=== PATIENT | female | born 1995 | race Caucasian/White ===

== ENCOUNTER 2024-05-16 15:57 | Inpatient (IN) | payer OTHER, SELFPAY ==
[2024-05-16] VITALS (18 sets, daily range): BP systolic 77–218; BP diastolic 52–202; PULSE 64–136; TEMP 36.4–36.6; BMI 31.1
--- NOTE | 2024-05-16 15:57 | LDADM ---
This patient, Chase Wayne, was admitted to Labor/Delivery/Recovery 108 on 05/16/24 at 15:57. Plans for labor, pain management and were discussed with patient. Patient/family oriented to hospital policies and general routines including ID bracelet, bed and alarms, visiting hours, pain management, procedures, bathroom and other care routines, personal items, smoking policy, room service/diet and guest tray routines, infant security routines, and visiting hours. Patient/Family are encouraged to report perceived risks to care and to ask questions if they do not understand what they are told or what they should do. See OBIX for further documentation.
[2024-05-16 16:42] LABS: Basophils Percent Auto 0.3 % (0.2-1.2); Eosinophils Absolute Auto 0.1 K/mm3 (0-0.3); Eosinophils Percent Auto 0.7 % (0-4.4); Hematocrit 37.6 % (37.0-47.0); Hemoglobin 12.1 g/dL (12.0-15.0); Immature Granulocyte Absolute 0.16 K/mm3 (0.00-0.031); Immature Granulocyte Percent A 1.2 % (0-0.5); Lymphocytes Absolute Auto 1.46 K/mm3 (0.9-3.2); Mean Corpuscular HGB Conc 32.2 g/dl (32-36); Mean Corpuscular Hemoglobin 26.3 pg (26-34); Mean Corpuscular Volume 81.7 fl (80-100); Mean Platelet Volume 10.1 fl (7.4-10.4); Monocytes Absolute Auto 1.1 K/mm3 (0.1-0.6); Monocytes Percent Auto 8.4 % (2.6-8.5); Neutrophils Absolute Auto 10.4 K/mm3 (1.3-6.7); Neutrophils Percent Auto 78.4 % (45.5-73.1); Platelet Count Result 224 k/mm3 (150-375); Red Cell Distribution Width 13.7 % (11.5-14.5); White Blood Count 13.3 K/mm3 (4.5-10.0)
[2024-05-16] MEDS: DINOPROSTONE 10 MG VAG INSERT VAGINAL (17:12)
[2024-05-16 17:29] LABS: HIV 1/2 Ab P24 Ag Result Negative (Negative)
[2024-05-16 18:08] LABS: Rapid Plasma Reagin Non-Reactive (NonReactive)
[2024-05-17] VITALS (114 sets, daily range): BP systolic 101–142; BP diastolic 59–94; PULSE 70–288; TEMP 36.2–36.9; O2SAT 94–100
--- NOTE | 2024-05-17 05:24 | WPDANESEPP ---
Anes - Eval Pre Procedure Procedure: Labor Epidural Date/Time: 05/17/24 05:24 Surgeon: Singh Preop Diagnosis: Labor Pain Pre Op Diagnosis: Induction of Labor Patient Data Age: 28 Gender: F Height: 1.65 m Weight: 85 kg Last Vital Signs Temp 36.6 C 05/17/24 03:00 Pulse 85 05/17/24 03:08 BP 103/63 05/17/24 03:08 Allergies Allergy/AdvReac Type Severity Reaction Status Date / Time human papillomavirus Allergy Intermediate Blurry Verified 05/15/24 08:41 vaccine, bival Vision Home Medications Medication Instructions Recorded Confirmed Type vits no.126-ferrous fum 1 tablet PO DAILY 10/03/23 05/08/24 History 28 mg iron-folic acid 800 mcg tablet (Classic ) Laboratory Tests 05/16/24 16:13 WBC 13.3 H K/mm3 (4.5-10.0) RBC 4.60 M/mm3 (4.2-5.4) Hgb 12.1 g/dL (12.0-15.0) Hct 37.6 % (37.0-47.0) MCV 81.7 fl (80-100) MCH 26.3 pg (26-34) MCHC 32.2 g/dl (32-36) RDW 13.7 % (11.5-14.5) Plt Count 224 k/mm3 (150-375) MPV 10.1 fl (7.4-10.4) Immature Gran % (Auto) 1.2 H % (0-0.5) Neut % (Auto) 78.4 H % (45.5-73.1) Lymph % (Auto) 11.0 L % (18.3-44.2) [place] % (Auto) 8.4 % (2.6-8.5) Eos % (Auto) 0.7 % (0-4.4) Baso % (Auto) 0.3 % (0.2-1.2) Lymph # (Auto) 1.46 K/mm3 (0.9-3.2) [place] # (Auto) 1.1 H K/mm3 (0.1-0.6) Eos # (Auto) 0.1 K/mm3 (0-0.3) Baso # (Auto) 0.0 K/mm3 (0.0-0.1) Abs Immat Gran (auto) 0.16 H K/mm3 (0.00-0.031) Absolute Neuts (auto) 10.4 H K/mm3 (1.3-6.7) Absolute Nucleated RBC 0.000 K/mm3 (0.0-0.012) Nucleated RBC % 0.0 % (0.0-0.2) RPR Non-reactive (NonReactive) HIV 1&2 Ab/P24 Ag 4thGn Negative (Negative) Blood Type O Positive Antibody Screen Negative : gestational age (. JAMEEL 05/20/24) Patient hx anesthesia problems: none Family hx anesthesia problems: none Results Review: All pre-operative results and documents have been reviewed as part of the pre-operative evaluation. [facility] Past Medical History Medical History Suppression of menses Surgical History Surgical History H/O wisdom tooth extraction Family History Family History Grandparent Hypertension Father Family history of kidney stones Legal Guardian No problems noted. Mother Heart disease Social History Social History Years smoked: 3 Smoking status: Former smoker Second hand tobacco smoke exposure: No Smoking end date: 09/19/19 Alcohol intake: former Alcohol use details: social Substance use: never Substance use type: does not use Do You Feel Safe in your Home?: Yes Lack of Transportation: No Lack of Food: Never True Current Housing: I Have Housing Concerned About Future Housing: No Difficulty Paying Gas/Electric Bills: No Difficulty Paying for Meds: No Currently Unemployed: No Education: Master's Degree or Higher Difficulty w/ Childcare or Family Care: No Living arrangements: with family Additional living arrangements comments: Occupation/Education: student 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
[2024-05-17] MEDS: LACTATED RINGERS 1,000 ML 125 ML IV CONT ×2 (06:47→22:01)
[2024-05-17] MEDS: miSOPROStol 25 MCG TABLET VAGINAL ×2 (07:07→11:43)
--- NOTE | 2024-05-17 11:51 | PM.IMHP ---
H&P: HPI History of Present Illness Date/Time: 05/17/24 11:51 Chief Complaint: Intrauterine at term Narrative: 28 yo at 39w4d who presents for elective IOL. has been uncomplicated. Review of Systems Cardiovascular: Cardiovascular: Denies chest pain, Denies leg edema, Denies palpitations, Denies dyspnea and Denies dyspnea on exertion Respiratory: Respiratory: Denies cough, Denies dyspnea and Denies dyspnea on exertion Gastrointestinal: Gastrointestinal: Denies abdominal pain, Denies constipation, Denies diarrhea, Denies nausea and Denies vomiting Genitourinary: Genitourinary: Denies hematuria, Denies urinary frequency, Denies dysuria, Denies pelvic pain, Denies urinary incontinence and Denies vaginal discharge Neurologic: Reports system reviewed and no additional complaints, except as documented Psychiatric: Psychiatric: Reports no additional psychiatric complaints Endocrine: Endocrine: Denies palpitations PMFSH Past Medical History Medical History Suppression of menses Surgical History Surgical History H/O wisdom tooth extraction Family History Family History Grandparent Hypertension Father Family history of kidney stones Legal Guardian No problems noted. Mother Heart disease Social History Social History Years smoked: 3 Smoking status: Former smoker Second hand tobacco smoke exposure: No Smoking end date: 09/19/19 Alcohol intake: former Alcohol use details: social Substance use: never Substance use type: does not use Do You Feel Safe in your Home?: Yes Lack of Transportation: No Lack of Food: Never True Current Housing: I Have Housing Concerned About Future Housing: No Difficulty Paying Gas/Electric Bills: No Difficulty Paying for Meds: No Currently Unemployed: No Education: Master's Degree or Higher Difficulty w/ Childcare or Family Care: No Living arrangements: with family Additional living arrangements comments: Occupation/Education: 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 Gender identity (if verbalized by the patient): Female Sexual Orientation (if Verbalized by the Patient): Straight or Heterosexual Spiritual care concerns: No Meds Home Medications and Allergies Home Medications Medication Instructions Recorded Confirmed Type vits no.126-ferrous fum 1 tablet PO DAILY 10/03/23 05/08/24 History 28 mg iron-folic acid 800 mcg tablet (Classic ) Allergies Allergy/AdvReac Type Severity Reaction Status Date / Time human papillomavirus Allergy Intermediate Blurry Verified 05/15/24 08:41 vaccine, bival Vision Vital Signs Vital Signs - 24 hr 05/16/24 16:50 05/16/24 17:00 05/16/24 17:30 Temperature Pulse Rate 95 101 H 97 Blood Pressure 138/78 131/92 H 115/74 Pulse Oximetry 05/16/24 17:45 05/16/24 18:00 05/16/24 18:15 Temperature Pulse Rate 95 98 99 Blood Pressure 99/59 L 113/65 107/64 Pulse Oximetry 05/16/24 18:30 05/16/24 18:45 05/16/24 19:00 Temperature 97.6 F Pulse Rate 88 95 94 Blood Pressure 113/76 126/70 121/74 Pulse Oximetry 05/16/24 19:15 05/16/24 19:34 05/16/24 19:36 Temperature Pulse Rate 92 136 H 64 Blood Pressure 77/54 L 218/202 H 132/80 Pulse Oximetry 05/16/24 19:45 05/16/24 20:00 05/16/24 20:15 Temperature Pulse Rate 91 99 99 Blood Pressure 113/71 123/76 126/74 Pulse Oximetry 05/16/24 20:30 05/16/24 20:45 05/17/24 01:31 Temperature Pulse Rate 104 H 102 H 96 Blood Pressure 108/52 L 115/55 L 112/78 Pulse Oximetry 05/17/24 03:08 05/16/24 21:30 05/17/24 01:30 Temperature 97.9 F 97.8 F Pulse Rate 85 Blood Pressure 103/63
--- NOTE | 2024-05-17 11:55 | PM.OBPNLAB ---
Pain Control Date/time seen: 05/17/24 11:55 Pain control: tolerating well Pelvic Exam Dilation (cm): 1 Effacement (%): 50 station: -3 Amniotic membrane status: Intact Contractions Monitor mode: External Status status: Category l Assessment and Plan Assessment: induction ongoing Comments: cervix unchanged after cervidil and 1 dose of 25 mcg vaginal misoprostol. Discussed plan of care with patient at bedside. will proceed with an additional dose of vaginal misoprostol. will re-assess after 4 hours
[2024-05-17] MEDS: miSOPROStol 25 MCG TABLET 50 MCG PO (15:54)
[2024-05-17] MEDS: ONDANSETRON INJ 4 MG/2 ML VIAL IV PUSH (20:40)
[2024-05-17] MEDS: LACTATED RINGERS 500 ML 999 ML IV CONT (20:40)
--- NOTE | 2024-05-17 21:28 | PM.OBPNLAB ---
Pain Control Date/time seen: 05/17/24 21:28 Pelvic Exam Dilation (cm): 1 Effacement (%): 50 station: -3 Amniotic membrane status: Intact Contractions Monitor mode: External Status status: Category l Assessment and Plan Assessment: induction ongoing Comments: Cook cervical catheter placed with 40 mL in each balloon. Pt has an epidural placed and is comfortable. will continue with IOL
[2024-05-17] MEDS: OXYTOCIN 30 UNITS/NS 500 ML 30 UNITS/500 ML BAG IV CONT (22:01)
[2024-05-18] VITALS (98 sets, daily range): BP systolic 98–136; BP diastolic 53–98; PULSE 60–183; RESP 16–18; TEMP 36.3–37.9; O2SAT 95–100
[2024-05-18] MEDS: ONDANSETRON INJ 4 MG/2 ML VIAL IV PUSH (04:15)
--- NOTE | 2024-05-18 05:42 | PM.OBPRVD ---
OB - Vaginal Delivery Note Procedure Delivery date: 05/18/24 Induction method: Per Cervidil Protocol Delivery augmentation: Pitocin Delivery monitor: External FHT and External Uterine Route of delivery: Episiotomy description: None Laceration Description: Labial and Superficial Delivery repair: vicryl Specimen: No Quantitative Blood Loss (ml): 150 Anesthesia type: Epidural Disposition: PACU Complications: No immediate complications Narrative: Patient pushed for a spontaneous vaginal delivery. The fetus was delivered atraumatically and placed on the maternal abdomen. The cord was clamped and cut after 1 minute of life. The cord was double clamped and cut and a segment of cord was collected for cord gases. Cord blood was collected for blood type and Coomb's testing. The placenta delivered spontaneously and was noted to be intact. The perineum was inspected and noted to be intact. There were bilateral superficial labial lacerations. The lacerations were repaired with 3-0 vicryl in a running fashion. The uterus was firm and good hemostasis was noted. [place] Baby Date of : 05/18/24 Time of : 05:25 Gestational Age by Date: 39 Infant gender: Female presentation: vertex position: Right Occiput Anterior Placenta delivery description: Spontaneous Cord Vessel Description: 3 Vessels score one minute: 8 score five minutes: 9
[2024-05-18] MEDS: OXYTOCIN 30 UNITS/NS 500 ML 30 UNITS/500 ML BAG 125 UNITS IV CONT (06:24)
[2024-05-18] MEDS: BENZOCAINE 20% AER SPR (*SP) 56 GM CAN 1 SPRAY TOPICAL (06:41)
[2024-05-18] MEDS: WITCH HAZEL 40 PADS 1 PAD TOPICAL (06:41)
[2024-05-18] MEDS: ACETAMINOPHEN 325 MG TABLET 650 MG PO ×3 (06:42→19:38)
[2024-05-18] MEDS: LORATADINE 10 MG TABLET PO (06:42)
[2024-05-18] MEDS: IBUPROFEN 600 MG TABLET PO ×3 (06:42→19:38)
--- NOTE | 2024-05-18 08:07 | OBPPTRN ---
Patient transferred to post room # 282 via ambulatory. Support person present. Oriented to unit, room, information board, rooming in, admission packet and security measures. Patient verbalizes understanding.
[2024-05-18] MEDS: MULTIVIT/MIN/PREN/FOL AC/IRON TABLET 1 TAB PO (10:27)
[2024-05-18] MEDS: DOCUSATE SODIUM 100 MG CAPSULE PO ×2 (10:27→17:28)
--- NOTE | 2024-05-18 11:35 | PM.OBDSVD ---
DS: Admitting Diagnosis Discharge Date 05/19/24 Admitting Diagnosis intrauterine at term DS: Discharge Diagnosis Discharge Diagnosis (1) Normal vaginal delivery: Code(s): O80 - Encounter for full-term uncomplicated delivery Status: Acute OB - DS: Summary OB Procedures : None OB Procedures Intrapartum: Spontaneous Vag Delivery OB Procedures: : None Peripartum Data Laceration Description: Labial and Superficial Episiotomy description: None Status at Discharge Functional status at discharge: independent ambulation Overall status at discharge: patient is back to baseline Time Spent with Patient Time attestation: Total time spent providing and/or coordinating discharge services: Time spent: Less than 30 minutes Exam Const: General: comfortable and no acute distress Resp: Effort & Inspection: normal respiratory effort Auscultation: clear to auscultation bilaterally Cardio: Rate: regular rate GI: GI Palp: Yes Soft to palpation Auscultation: normal bowel sounds Other: Fundus firm below umbilicus Psych: Appearance: grossly normal Mental Status: mental status grossly normal Affect: normal affect Discharge Plan Discharge Discharging Clinician: Pankaj Reyes Patient Disposition: Home, Self-Care Activity: pelvic rest Diet: regular Discharge Instructions: Education: Mom and Baby Guide Given to: Mother Follow-Up: Call your delivering provider's office for an appointment to be seen in: call your OB's office to schedule your follow up appt Mom and baby should come [facility] for the follow-up appointment. Appointment Date/Time: May 21, 2024 at 12:30 pm What to expect at your follow-up visit: Blood Pressure Check Physical Assessment Call [phone] if you are unable to keep your appointment time. BREAST CARE: * Wear a snug supportive bra. * For engorgement discomfort: Breast Feeding: * Apply warm moist washcloths * Express milk as needed to relieve engorgement * Wear loose clothing Bottle Feeding: * May apply ice packs * For sore nipples: * Identify correct latch-on * Apply warm moist washcloths before and after nursing * Air dry nipples after nursing * May apply Lansinoh cream to nipples PERINEAL CARE: * Until bleeding stops, use your nati bottle after urinating * Change your pad frequently throughout the day * You may take sitz baths several times a day (fill your bathtub with warm water and soak for 20 minutes.) Do NOT bathe in the water * No tub baths until seen by your physician - You may shower ACTIVITY: * Rest as much as possible. * Do not exercise or lift anything heavier than your baby (such as laundry or other children.) * Avoid stairs or driving as much as possible. * Do not put anything into the vagina. No douching, tampons, or sexual activity until seen by physician. NOTIFY PHYSICIAN IF YOU HAVE ANY QUESTIONS OR IF ANY OF THE FOLLOWING SYMPTOMS OCCUR: * If your vaginal bleeding becomes foul smelling. * If your vaginal bleeding becomes more heavy than a period or if your bleeding changes from pink to bright red. However, you may pass an occasional walnut-sized clot once or twice for the first week . * If you experience a sharp, shooting pain in you calves. * If you discover a hard, reddened area on your breast or if you experience flu-like symptoms. DIET: * Eat regular, well-balanced meals. * Drink plenty of fluids daily. If , drink to thirst. Patient Instructions: Antibiotic Form, Vaginal Delivery (DC) Stand Alone Forms: General Discharge Information Follow-up/Referrals: Pankaj Reyes MD [Physician] - Discharge Medications: New acetaminophen 500 mg tablet 500 mg PO Q6H PRN (Reason: pain) Qty: 30 0RF ibuprofen 600 mg tablet 600 mg PO Q6H PRN (Reason: pain) Q
--- NOTE | 2024-05-18 13:20 | PC.NURSE ---
Introductions were made, then consulted with patient to assess needs related to . Mother states that is latching well and she feels confident with positioning and getting on breast for feedings. Feeding sheet reviewed with mother. Mother works well with her . No latch observed at this time. Mother voiced understanding of skin to skin, stimulating with massage touch, responsive feedings, hand expressed colostrum, talking to to encourage if it has been 2 -2.5 hours since the start of the last , to call if infant does not latch, or if there is discomfort with . Communication board updated. Parents voiced understanding of information and will call if there is a request for assistance. Reported to the Primary RN.
--- NOTE | 2024-05-18 17:00 | PC.NURSE ---
This RN called to room for assistance latching . was crying upon entering room and would not latch. Instructed mother on how to soothe infant before attempting to latch. Infant settled and latched to the right breast in football position. Mother instructed to call for additional assistance if needed.
[2024-05-19 05:55] LABS: Hematocrit 32.9 % (37.0-47.0); Hemoglobin 10.6 g/dL (12.0-15.0)
[2024-05-19] MEDS: IBUPROFEN 600 MG TABLET PO (07:17)
[2024-05-19] MEDS: MULTIVIT/MIN/PREN/FOL AC/IRON TABLET 1 TAB PO (07:17)
[2024-05-19] MEDS: LORATADINE 10 MG TABLET PO (07:18)
[2024-05-19] MEDS: DOCUSATE SODIUM 100 MG CAPSULE PO (07:18)
[2024-05-19 07:45] VITALS: BP 116/74; PULSE 80; RESP 18; TEMP 36.3; O2SAT 100
--- NOTE | 2024-05-19 08:00 | PC.NURSE ---
This RN called to bedside to assist with latching . Infant was screaming upon entering the room at the breast. Mother states that it has been a few hours since the last feed - explained to mother that is unlikely to latch if she is overly hungry. 1cc of pumped breast milk was given to help settle . Once the EBM was given, was calm and latched well to the right breast in cross cradle position. At this time, we discussed appropriate time frame to use milk that has been refrigerated. Handout was given with education about storing breastmilk. Mother understands education and no further questions at this time.
--- NOTE | 2024-05-19 08:27 | PM.OBPNVD ---
OB - PN: Subj Subjective Date/time seen: 05/19/24 08:27 Patient comments: pain well controlled, tolerating diet and other (Decreasing lochia.) baby status: doing well and nursing well [place] feeding status: exclusively breast feeding OB - PN: Obj Data Labs 05/19/24 05:37 Labs: Laboratory Results - last 24 hr 05/19/24 05:37 Hgb 10.6 L Hct 32.9 L OB - PN A/P Plan day: 1 Plan: routine care Comments: Patient doing well. She request discharge to home. Will allow discharge to home if baby is discharged. Time Spent With Patient Time: Total time spent is greater than 50% in coordination of care (as documented) at patient's floor/unit and/or counseling patient: Exam Psych: Affect: normal affect Other: Abd: fundus firm below umbilicus, nontender Perineum/labia- healing, minimal swelling. Ext: nontender
--- NOTE | 2024-05-19 10:29 | WPDANLDPN2 ---
Anes-Prog Note L&D Date/Time: 05/19/24 10:29 Comfortable throughout: labor and delivery Neuraxial method: epidural Epidural/Spinal procedure site: clean & non-tender Neuro status: Neuro function grossly intact. Cardiovascular status: normal Respiratory status: normal Airway patency: baseline Mental status: baseline Post-Op hydration status: normal Vital Signs: Last Vital Signs Temp 97.3 F L 05/19/24 07:45 Pulse 80 05/19/24 07:45 Resp 18 05/19/24 07:45 BP 116/74 05/19/24 07:45 Pulse Ox 100 05/19/24 07:45 O2 Del Method Room Air 05/19/24 07:25 Pain score (VAS): 0 Post-procedural complaints: none Patient feedback: Patient satisfied with anesthetic care.
--- NOTE | 2024-05-19 17:32 | PC.NURSE ---
1400.Patient viewed the discharge video Mother & Baby Care, The First Two Weeks . Patient was given the opportunity and encouraged to ask questions. Patient verbalized understanding of information shared and has been given the mother/baby guide for home reference.
[2024-05-21 12:58] VITALS: BP 132/87; PULSE 89; RESP 18; TEMP 36.8; O2SAT 99
== END 2024-05-19 17:48 | disposition home or self-care (01) | DRG 807 ==
LOC: ANHOB2 05-19 16:57 → ANHLDR 05-22 12:34
PROVIDERS: Admitting Provider Student in an Organized Health Care Education/Training Program; Visit Provider Obstetrics & Gynecology
DX: O70.0 First degree perineal laceration during delivery (principal); Z37.0 Single live birth; Z3A.39 39 weeks gestation of pregnancy
CPT/HCPCS: 36415; 85014; 85018; 85025; 86592; 86703; 86850; 86900; 86901; A9270; G0432; J2405; J2590; J2795; J7120

== ENCOUNTER 2025-08-12 21:07 | Inpatient (IN) | payer OTHER, SELFPAY ==
[2025-08-12] VITALS (39 sets, daily range): BP systolic 101–118; BP diastolic 51–72; PULSE 88–112; TEMP 36.5; O2SAT 93–100; BMI 32.0
--- OUTSIDE RECORDS SUMMARY | 2025-08-12 21:13 | XMS_ITS | Clinical Summary ---
Author Organization [facility] Address [address] [place] [address] Care Team Providers Care Mold Yard Crane Operator Name Role Phone Bre Dow MD Primary Care Provider [phone] Allergies No known active allergies Medications ondansetron (Zofran) 4 mg Tablet Take 1 Tablet (4 mg) by mouth every 8 hours as needed for Nausea/Emes is. 12 Tablet 09/16/2022 Active Active Problems Problem Noted Date Diagnosed Date Facial laceration 03/26/2013 Iritis 03/26/2013 UTI (urinary tract infection) 08/03/2012 Social History Tobacco Use Types Packs/Day Years Used Date Smoking Tobacco: Never Smokeless Tobacco: Never Alcohol Use Standard Drinks/Week Comments Not Asked 0 (1 standard drink = 0.6 oz pur e alcohol) Feeling Safe Answer Date Recorded Are you in a relationship wi th someone who hurts you emotionally and/or physically? 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 Gender Identity Not on file Sexual Orientation Not on file Occupation Industry Job Start Date Job End Date Not on file Not on file Not on file Not on file Last Filed Vital Signs Vital Sign Reading Time Taken Comments Blood Pressure 110/61 06/14/2023 3:21 AM CDT Pulse 89 06/14/2023 3:21 AM CDT Temperature 36.7 C (98.1 F) 06/14/2023 3:21 AM CDT Respiratory Rate 18 06/14/2023 3:21 AM CDT Oxygen Saturation 97% 06/14/2023 3:21 AM CDT Inhaled Oxygen Concentration - - Weight 59 kg (130 lb) 06/14/2023 3:21 AM CDT Height 165.1 cm (5' 5) 06/14/2023 3:21 AM CDT Body Mass Index 21.63 06/14/2023 3:21 AM CDT Plan of Treatment Health Maintenance Due Date Last Done Comments DTAP/TDAP/TD VACCINES (1 - Tdap) 12/07/2014 HEPATITIS B VACCINES (1 of 3 - 19+ 3-dose series) 11/18 CERVICAL CANCER SCREENING 12/07/2016 HPV/Cotest (-) 12/07/2016 PAP SMEAR 12/07/2016 HPV VACCINES (1 - 3-dose SCDM series) 12/07/2022 INFLUENZA VACCINE (#1) 2025 Insurance [facility] CHOICE PLUS Care Teams Mold Yard Crane Operator Relationship Specialty Start Date End Date Bre Dow MD [address] [facility] [address] [place] [id number] PCP - General Pediatrics 04/04/10
--- OUTSIDE RECORDS SUMMARY | 2025-08-12 21:13 | XMS_ITS | Encounter Summary ---
Author Organization [employer] Address 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
--- OUTSIDE RECORDS SUMMARY | 2025-08-12 21:13 | XMS_ITS | Encounter Summary ---
Author Organization [facility] Address 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
--- NOTE | 2025-08-12 21:28 | LDADM ---
This patient, Chase Wayne, was admitted to Labor/Delivery/Recovery 107 on 08/12/25 at 21:07. Plans for labor, pain management and were discussed with patient. Patient/family oriented to hospital policies and general routines including ID bracelet, bed and alarms, visiting hours, pain management, procedures, bathroom and other care routines, personal items, smoking policy, room service/diet and guest tray routines, infant security routines, and visiting hours. Patient/Family are encouraged to report perceived risks to care and to ask questions if they do not understand what they are told or what they should do. See OBIX for further documentation.
[2025-08-12 21:40] LABS: Hematocrit 33.0 % (37.0-47.0); Hemoglobin 10.9 g/dL (12.0-15.0); Immature Granulocyte Percent A 1.4 % (0-0.5); Lymphocytes Absolute Auto 2.78 K/mm3 (0.9-3.2); Mean Corpuscular HGB Conc 33.0 g/dl (32-36); Mean Corpuscular Hemoglobin 25.1 pg (26-34); Mean Corpuscular Volume 75.9 fl (80-100); Nucleated Red Blood Cells Absolute Auto 0.000 K/mm3 (0.0-0.012); Nucleated Red Blood Cells Perc 0.0 % (0.0-0.2); Platelet Count Result 197 k/mm3 (150-375); Red Blood Count 4.35 M/mm3 (4.2-5.4); White Blood Count 14.6 K/mm3 (4.5-10.0)
[2025-08-12 22:18] LABS: Syphilis IgG/IgM Antibody Non-Reactive (Nonreactive)
[2025-08-13] VITALS (186 sets, daily range): BP systolic 71–147; BP diastolic 36–112; PULSE 63–185; RESP 18; TEMP 36.2–37.5; O2SAT 85–100
--- NOTE | 2025-08-13 01:59 | P.PNAN_ITS ---
Anes - Eval Pre Procedure Procedure: labor epidural Date/Time: 08/13/25 01:59 Surgeon: tita Preop Diagnosis: pain during labor Pre Op Diagnosis: IOL Patient Data Age: 29 Gender: F Height: 1.65 m Weight: 87.27 kg Last Vital Signs Temp 36.7 C 08/13/25 01:00 Pulse 89 08/13/25 01:46 BP 120/72 08/13/25 01:46 Pulse Ox 94 08/13/25 01:58 O2 Del Method Room Air 08/12/25 21:27 Allergies Allergy/AdvReac Type Severity Reaction Status Date / Time human papillomavirus Allergy Intermediate Blurry Verified 08/12/25 21:51 vaccine, bival Vision Home Medications ?Medication ?Instructions ?Recorded ?Confirmed ?Type vits no.126-ferrous fum 1 tablet PO DAILY 08/12/25 History 28 mg iron-folic acid 800 mcg tablet (Classic ) Laboratory Tests 08/12/25 21:21 WBC 14.6 H K/mm3 (4.5-10.0) RBC 4.35 M/mm3 (4.2-5.4) Hgb 10.9 L g/dL (12.0-15.0) Hct 33.0 L % (37.0-47.0) MCV 75.9 L fl (80-100) MCH 25.1 L pg (26-34) MCHC 33.0 g/dl (32-36) RDW 14.2 % (11.5-14.5) Plt Count 197 k/mm3 (150-375) MPV 9.3 fl (7.4-10.4) Immature Gran % (Auto) 1.4 H % (0-0.5) Neut % (Auto) 70.8 % (45.5-73.1) Lymph % (Auto) 19.0 % (18.3-44.2) Foster % (Auto) 7.4 % (2.6-8.5) Eos % (Auto) 0.9 % (0-4.4) Baso % (Auto) 0.5 % (0.2-1.2) Lymph # (Auto) 2.78 K/mm3 (0.9-3.2) Foster # (Auto) 1.1 H K/mm3 (0.1-0.6) Eos # (Auto) 0.1 K/mm3 (0-0.3) Baso # (Auto) 0.1 K/mm3 (0.0-0.1) Abs Immat Gran (auto) 0.20 H K/mm3 (0.00-0.031) Absolute Neuts (auto) 10.3 H K/mm3 (1.3-6.7) Absolute Nucleated RBC 0.000 K/mm3 (0.0-0.012) Nucleated RBC % 0.0 % (0.0-0.2) Syphilis IgG/IgM Ab Non-reactive (Nonreactive) Blood Type O Positive Antibody Screen Negative Patient hx anesthesia problems: none Family hx anesthesia problems: none Results Review: All pre-operative results and documents have been reviewed as part of the pre- operative evaluation. [facility]LY [facility] Past Medical History Medical History Suppression of menses Surgical History Surgical History H/O wisdom tooth extraction Family History Family History Grandparent Hypertension Father Family history of kidney stones Legal Guardian No problems noted. Mother Heart disease Social History Social History Years smoked: 3 Smoking status: Former smoker Second hand tobacco smoke exposure: No Smoking end date: 09/19/19 Alcohol intake: former Alcohol use details: social Substance use: never Substance use type: does not use Do You Feel Safe in your Home?: Yes Lack of Transportation: No Lack of Food: Never True Current Housing: I Have Housing Concerned About Future Housing: No Difficulty Paying Gas/Electric Bills: No Difficulty Paying for Meds: No Currently Unemployed: No Education: Master's Degree or Higher Difficulty w/ Childcare or Family Care: No Living arrangements: with family Additional living arrangements comments: Occupation/Education: student 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
--- NOTE | 2025-08-13 04:35 | PM.IMHP ---
H&P: HPI History of Present Illness Date/Time: 08/13/25 04:35 Chief Complaint: intrauterine at term Narrative: 29 yo who presents at 39w0d for elective IOL Review of Systems Cardiovascular: Cardiovascular: Denies chest pain, Denies leg edema, Denies palpitations, Denies dyspnea and Denies dyspnea on exertion Respiratory: Respiratory: Denies cough, Denies dyspnea and Denies dyspnea on exertion Gastrointestinal: Gastrointestinal: Denies abdominal pain, Denies constipation, Denies diarrhea, Denies nausea and Denies vomiting Genitourinary: Genitourinary: Denies hematuria, Denies urinary frequency, Denies dysuria, Denies pelvic pain, Denies urinary incontinence and Denies vaginal discharge Neurologic: Reports system reviewed and no additional complaints, except as documented Psychiatric: Psychiatric: Reports no additional psychiatric complaints Endocrine: Endocrine: Denies palpitations PMFSH Past Medical History Medical History Suppression of menses Surgical History Surgical History H/O wisdom tooth extraction Family History Family History Grandparent Hypertension Father Family history of kidney stones Legal Guardian No problems noted. Mother Heart disease Social History Social History Years smoked: 3 Smoking status: Former smoker Second hand tobacco smoke exposure: No Smoking end date: 09/19/19 Alcohol intake: former Alcohol use details: social Substance use: never Substance use type: does not use Do You Feel Safe in your Home?: Yes Lack of Transportation: No Lack of Food: Never True Current Housing: I Have Housing Concerned About Future Housing: No Difficulty Paying Gas/Electric Bills: No Difficulty Paying for Meds: No Currently Unemployed: No Education: Master's Degree or Higher Difficulty w/ Childcare or Family Care: No Living arrangements: with family Additional living arrangements comments: Occupation/Education: student 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 Gender identity (if verbalized by the patient): Female Sexual Orientation (if Verbalized by the Patient): Straight or Heterosexual Spiritual care concerns: No Meds Home Medications and Allergies Home Medications ?Medication ?Instructions ?Recorded ?Confirmed ?Type vits no.126-ferrous fum 1 tablet PO DAILY 10/03/23 08/12/25 History 28 mg iron-folic acid 800 mcg tablet (Classic ) Allergies Allergy/AdvReac Type Severity Reaction Status Date / Time human papillomavirus Allergy Intermediate Blurry Verified 08/12/25 21:51 vaccine, bival Vision Vital Signs Vital Signs - 24 hr 08/12/25 21:27 08/12/25 21:41 08/12/25 21:43 Temperature Pulse Rate 102 H Blood Pressure 107/65 Pulse Oximetry 96 Oxygen Delivery Room Air 08/12/25 21:46 08/12/25 21:51 08/12/25 21:56 Temperature Pulse Rate Blood Pressure Pulse Oximetry 97 97 97 Oxygen Delivery 08/12/25 22:01 08/12/25 22:06 08/12/25 22:11 Temperature Pulse Rate 99 Blood Pressure 115/64 Pulse Oximetry 96 98 99 Oxygen Delivery 08/12/25 22:16 08/12/25 22:18 08/12/25 22:20 Temperature Pulse Rate 102 H Blood Pressure 107/51 L Pulse Oximetry 97 97 97 Oxygen Delivery 08/12/25 22:25 08/12/25 22:30 08/12/25 22:31 Temperature 97.7 F Pulse Rate 100 Blood Pressure 102/55 L Pulse Oximetry 97 97 Oxygen Delivery 08/12/25 22:35 08/12/25 22:38 08/12/25 22:43 Temperature Pulse Rate Blood Pressure Pulse Oximetry 97 97 97 Oxygen Delivery 08/12/25 22:46 08/12/25 22:48 08/12/25 22:53 Temperature Pulse Rate 95 Blood Pressure 101/58 L Pulse Oximetry 97 97 Oxygen Delivery 08/12/25 22:57 08/12/25 22:58 08/12/25 22:58 Temperature Pulse Rate Blood Pressure Pulse Oximetry 93 96 99 Oxygen Delivery 08/12/25 23:01 08/12/25 23:03 08/12/25 23:08 Temperature Pulse Rate 106 H Blood Pressure 113/66 Pulse Oximetry 100 97 Oxygen Delivery 08/12/25 23:13 08/12/25 23:16 08/12/25 23:18 Temperature Pulse Rate 95 Blood Pressure 114/70 Pulse Oximetry 99 99 Oxygen Delivery 08/12/25 23:23 08/12/25 23:28 08/12/25 23:29 Temperature Pulse Rate Blood Pressure Pulse Oximetry 98 97 98 Oxygen Delivery 08/12/25 23:31 08/12/25 23:34 08/12/25 23:39 Temperature Pulse Rate 95 Blood Pressure 118/65 Pulse Oximetry 98 96 Oxygen Delivery 08/12/25 23:44 08/12/25 23:46 08/12/25 23:49 Temperature Pulse Rate 102 H Blood Pressure 109/72 Pulse Oximetry 95 98 Oxygen Delivery 08/12/25 23:53 08/12/25 23:57 08/13/25 00:02 Temperature Pulse Rate Blood Pressure Pulse Oximetry 95 98 99 Oxygen Delivery 08/13/25 00:07 08/13/25 00:12 08/13/25 00:16 Temperature Pulse Rate 95 Blood Pressure 102/61 Pulse Oximetry 99 99 Oxygen Delivery 08/13/25 00:17 08/13/25 00:22 08/13/25 00:26 Temperature Pulse Rate Blood Pressure Pulse Oximetry 97 100 97 Oxygen Delivery 08/13/25 00:28 08/13/25 00:31 08/13/25 00:32 Temperature Pulse Rate 89 Blood Pressure 115/36 L Pulse Oximetry 96 95 Oxygen Delivery 08/13/25 00:36 08/13/25 00:41 08/13/25 00:46 Temperature Pulse Rate 96 Blood Pressure 109/72 Pulse Oximetry 95 98 94 Oxygen Delivery 08/13/25 00:51 08/13/25 00:56 08/13/25 01:00 Temperature 98.1 F Pulse Rate Blood Pressure Pulse Oximetry 99 98 Oxygen Delivery 08/13/25 01:01 08/13/25 01:06 08/13/25 01:08 Temperature Pulse Rate 91 Blood Pressure 107/68 Pulse Oximetry 92 98 98 Oxygen Delivery 08/13/25 01:13 08/13/25 01:16 08/13/25 01:18 Temperature Pulse Rate 108 H Blood Pressure 104/86 Pulse Oximetry 97 97 Oxygen Delivery 08/13/25 01:23 08/13/25 01:28 08/13/25 01:31 Temperature Pulse Rate 90 Blood Pressure 103/83 Pulse Oximetry 97 98 Oxygen Delivery 08/13/25 01:33 08/13/25 01:38 08/13/25 01:43 Temperature Pulse Rate Blood Pressure Pulse Oximetry 98 97 96 Oxygen Delivery 08/13/25 01:46 08/13/25 01:48 08/13/25 01:53 Temperature Pulse Rate 89 Blood Pressure 120/72 Pulse Oximetry 99 94 Oxygen Delivery 08/13/25 01:58 08/13/25 02:01 08/13/25 02:03 Temperature Pulse Rate 78 Blood Pressure 115/67 Pulse Oximetry 94 95 Oxygen Delivery 08/13/25 02:08 08/13/25 02:13 08/13/25 02:19 Temperature Pulse Rate Blood Pressure Pulse Oximetry 96 97 99 Oxygen Delivery 08/13/25 02:24 08/13/25 02:31 08/13/25 02:46 Temperature Pulse Rate 86 89 Blood Pressure 100/60 101/56 L Pulse Oximetry 98 Oxygen Delivery 08/13/25 03:01 08/13/25 03:16 08/13/25 03:31 Temperature Pulse Rate 91 88 88 Blood Pressure 107/60 104/64 115/77 Pulse Oximetry Oxygen Delivery 08/13/25 03:46 08/13/25 04:00 Temperature 97.1 F L Pulse Rate 79 Blood Pressure 106/62 Pulse Oximetry Oxygen Delivery Exam Const: General: no acute distress Eyes: EOM: EOMs intact bilaterally Neck: Neck: supple Thyroid: thyroid normal Chest: Breast/axilla inspection: normal inspection of the breasts Breast/axilla palpation: normal palpation of the breasts, normal palpation of the axillae and no axillary lymphadenopathy Resp: Effort & Inspection: normal respiratory effort Auscultation: clear to auscultation bilaterally Cardio: Rate: regular rate Rhythm: regular rhythm GI: Inspection: non-distended and other (Gravid) GI Palp: Yes Soft to palpation, No Tenderness to palpation present (GI) and No Guarding due to palpation present (GI) Auscultation: normal bowel sounds : Speculum Exam - Vagina: No vaginal bleeding OB/external & speculum: external exam normal; No vaginal bleeding Skin: General skin exam: normal color and no rashes or lesions noted Neuro: Cognition (Neuro): normal cognition Speech: normal speech Extrem: General: normal to inspection Psych: Mental Status: mental status grossly normal Affect: normal affect H&P: Results Labs Labs: Short CBC 08/12/25 Range/Units 21:21 WBC 14.6 H (4.5-10.0) K/mm3 Hgb 10.9 L (12.0-15.0) g/dL Hct 33.0 L (37.0-47.0) % Plt Count 197 (150-375) k/mm3 Assessment and Plan Assessment and plan (1) Term : Code(s): Z34.90 - Encounter for supervision of normal , unspecified, unspecified trimester Status: Acute Assessment and Plan: admit to L&D routine admission orders labs reviewed Rh+ GBS neg plan for misoprostol IOL continuous EFM may have epidural PRN
[2025-08-13] MEDS: PHENYLEPHRINE 1,000 MCG/10 ML SYRINGE 100 MCG IV PUSH ×3 (10:38→11:56)
[2025-08-13] MEDS: OXYTOCIN 30 UNITS/NS 500 ML 30 UNITS/500 ML BAG IV CONT (11:54)
[2025-08-13] MEDS: ONDANSETRON INJ 4 MG/2 ML VIAL IV PUSH (11:57)
[2025-08-13] MEDS: LACTATED RINGERS 1,000 ML 125 ML IV CONT (13:31)
--- NOTE | 2025-08-13 16:15 | PM.OBPRVD ---
OB - Vaginal Delivery Note Procedure Delivery date: 08/13/25 Induction method: Per Misoprostol Protocol Delivery augmentation: Pitocin Delivery monitor: External FHT and External Uterine Route of delivery: Episiotomy description: None Laceration Description: None and Superficial (left labia) Specimen: No Quantitative Blood Loss (ml): 200 Anesthesia type: Epidural Disposition: Floor Narrative: Patient pushed for a spontaneous vaginal delivery. The fetus was delivered atraumatically and placed on the maternal abdomen. The cord was clamped and cut after 1 minute of life. The cord was double clamped and cut and a segment of cord was collected for cord gases. Cord blood was collected for blood type and Coomb's testing. The placenta delivered spontaneously and was noted to be intact. The perineum was inspected and noted to be intact. The fundus was noted to be firm and good hemostasis was noted. The mom and were stable in the delivery room. [place] Baby Date of : 08/13/25 Time of : 15:57 Gestational Age by Date: 39 gender: Male Weight (pounds): 7 Weight (ounces): 8 presentation: vertex position: Right Occiput Anterior Placenta delivery description: Spontaneous Cord Vessel Description: 3 Vessels
[2025-08-13] MEDS: OXYTOCIN 30 UNITS/NS 500 ML 30 UNITS/500 ML BAG 125 UNITS IV CONT (16:43)
--- NOTE | 2025-08-13 20:39 | PC.NURSE ---
1952. Patient transferred to post room # via wheelchair, infant at moms side in crib. Support person present. Oriented to unit, room, information board, rooming in, admission packet and security measures. Patient verbalizes understanding.
[2025-08-13] MEDS: DOCUSATE SODIUM 100 MG CAPSULE PO (21:29)
[2025-08-13] MEDS: IBUPROFEN 600 MG TABLET PO (21:29)
[2025-08-13] MEDS: LANOLIN (LANSINOH) 7.5 GM CREAM 1 APPLIC TOPICAL (21:30)
[2025-08-14] MEDS: ACETAMINOPHEN 325 MG TABLET 650 MG PO ×2 (00:11→08:43)
[2025-08-14] MEDS: IBUPROFEN 600 MG TABLET PO ×4 (03:29→21:56)
[2025-08-14 04:02] VITALS: BP 117/79; PULSE 85; RESP 18; TEMP 36.9; O2SAT 97
[2025-08-14 04:50] LABS: Hematocrit 36.0 % (37.0-47.0); Hemoglobin 11.2 g/dL (12.0-15.0)
[2025-08-14 08:35] VITALS: BP 118/83; PULSE 87; RESP 18; TEMP 36.6; O2SAT 99
[2025-08-14] MEDS: MULTIVIT/MIN/PREN/FOL AC/IRON TABLET 1 TAB PO (08:43)
[2025-08-14] MEDS: DOCUSATE SODIUM 100 MG CAPSULE PO ×2 (08:43→16:23)
[2025-08-14 08:50] VITALS: PULSE 87; RESP 18; O2SAT 99
--- NOTE | 2025-08-14 08:54 | WPDANLDPN2 ---
Anes-Prog Note L&D Date/Time: 08/14/25 08:54 Neuro status: Neuro function grossly intact. Cardiovascular status: normal Respiratory status: normal Airway patency: baseline Mental status: baseline Post-Op hydration status: normal Vital Signs: Last Vital Signs Temp 36.9 C 08/14/25 04:02 Pulse 85 08/14/25 04:02 Resp 18 08/14/25 04:02 BP 117/79 08/14/25 04:02 Pulse Ox 97 08/14/25 04:02 O2 Del Method Room Air 08/13/25 20:30 Pain score (VAS): 0 I/O: Intake & Output 08/13/25 08/14/25 08/14/25 23:59 07:59 15:59 Intake Total 500 Output Total 200 Balance 300 Post-procedural complaints: none Patient feedback: Patient satisfied with anesthetic care.
--- NOTE | 2025-08-14 09:00 | P.PNOB_ITS ---
OB - PN: Subj Subjective Date/time seen: 08/14/25 09:00 Patient comments: no complaints, pain well controlled and tolerating diet [place] feeding status: exclusively breast feeding Narrative: patient doing well this AM. No complaints. Pain is well controlled. She reports minimal bleeding. She is ambulating and voiding without difficulty. She is tolerating PO. She denies N/V, fever, chills. OB - PN: Obj Data Labs 08/14/25 03:26 Labs: Laboratory Results - last 24 hr 08/14/25 03:26 Hgb 11.2 L Hct 36.0 L OB - PN A/P Plan day: 1 Plan: routine care Comments: patient doing well H/H stable desires infant circumcision. Risks, benefits, alternatives discussed continue routine care Time Spent With Patient Time: Total time spent is greater than 50% in coordination of care (as documented) at patient's floor/unit and/or counseling patient: Time with patient: less than 15 minutes Review of Systems 2 Review of Systems: All systems reviewed & are unremarkable except as noted in HPI and below Exam 2 Const: General: comfortable and no acute distress Resp: Effort & Inspection: normal respiratory effort Cardio: Rate: regular rate GI: GI Palp: Yes Soft to palpation and No Tenderness to palpation present (GI) Auscultation: normal bowel sounds Other: fundus firm and below umbilicus. Psych: Affect: normal affect
[2025-08-14 12:09] VITALS: BP 114/66; PULSE 91; RESP 16; TEMP 36.8; O2SAT 98
--- NOTE | 2025-08-14 16:13 | PM.OBDSVD ---
DS: Admitting Diagnosis Discharge Date 08/15/25 Admitting Diagnosis intrauterine at term DS: Discharge Diagnosis Discharge Diagnosis (1) Normal vaginal delivery: Code(s): O80 - Encounter for full-term uncomplicated delivery Status: Acute OB - DS: Summary OB Procedures : None OB Procedures Intrapartum: Spontaneous Vag Delivery OB Procedures: : None Peripartum Data Laceration Description: None and Superficial (left labia) Episiotomy description: None Status at Discharge Functional status at discharge: independent ambulation Overall status at discharge: patient is back to baseline Time Spent with Patient Time attestation: Total time spent providing and/or coordinating discharge services: Time spent: Less than 30 minutes Exam Const: General: comfortable and no acute distress Resp: Effort & Inspection: normal respiratory effort Auscultation: clear to auscultation bilaterally Cardio: Rate: regular rate GI: GI Palp: Yes Soft to palpation Auscultation: normal bowel sounds Other: Fundus firm below umbilicus Psych: Appearance: grossly normal Mental Status: mental status grossly normal Affect: normal affect DS: Data Data Completed and Pending Labs on day of discharge: Labs from last 24 hours 08/14/25 03:26 Hgb 11.2 L Hct 36.0 L Discharge Plan Discharge Discharging Clinician: Pankaj Reyes Patient Disposition: Home Activity: as tolerated and pelvic rest Diet: regular Patient Instructions: Antibiotic Form, Vaginal Delivery (DC) Patient Language: Guamanian Stand Alone Forms: General Discharge Information Follow-up/Referrals: Pankaj Reyes MD [Physician, [employer]] Discharge Medications: New ibuprofen 600 mg tablet 600 mg PO Q6H PRN (Reason: pain) Qty: 30 0RF acetaminophen 500 mg tablet 500 mg PO Q6H PRN (Reason: pain) Qty: 30 0RF Continued Classic 28 mg iron- 800 mcg tablet 1 tablet PO DAILY Date of admission: 08/12/25 21:07 Primary Care Provider: PHYSICIAN NOT ON STAFF,NONSTAFF Admitting Provider: Pankaj Reyes Attending physician on admission: Pankaj Reyes Condition: Stable
[2025-08-14] MEDS: WITCH HAZEL 40 PADS 1 PAD TOPICAL (16:23)
--- NOTE | 2025-08-14 17:39 | PC.NURSE ---
Mother verbalizes she is able to independently latch with appropriate positioning and alignment. She denies any nipple discomfort and is responsively . Infant is currently meeting outcomes for weight, output, jaundice, blood sugar and feeding frequencies of 8-12 times in 24 hours. Mother declines any additional assistance or education at this time. Mother is encouraged to call for assistance if her infant doesn?t latch, pain with latching, questions or concerns. Mother voiced understanding of information shared along with the mom/baby guide for an additional resource. Reported to the Primary RN.
[2025-08-14 20:00] VITALS: BP 118/78; PULSE 88; RESP 17; TEMP 36.7; O2SAT 99
[2025-08-15] MEDS: IBUPROFEN 600 MG TABLET PO (04:00)
[2025-08-15 07:45] VITALS: BP 124/77; PULSE 75; RESP 18; TEMP 37.4; O2SAT 98
[2025-08-15] MEDS: DOCUSATE SODIUM 100 MG CAPSULE PO (09:15)
[2025-08-15] MEDS: MULTIVIT/MIN/PREN/FOL AC/IRON TABLET 1 TAB PO (09:15)
== END 2025-08-15 10:41 | disposition home or self-care (01) | DRG 807 ==
LOC: ANHLDR 21:11 → ANHOB2 08-13 19:56
PROVIDERS: Admitting Provider Student in an Organized Health Care Education/Training Program; Visit Provider Student in an Organized Health Care Education/Training Program
DX: O70.0 First degree perineal laceration during delivery (principal); Z37.0 Single live birth; Z3A.39 39 weeks gestation of pregnancy
CPT/HCPCS: 36415; 85014; 85018; 85025; 86593; 86850; 86900; 86901; A9270; J2371; J2405; J2590; J2795; J7120